=== PATIENT | male | born 1965 | race Caucasian/White ===

== ENCOUNTER 2017-06-16 17:48 | Emergency (ER) | payer BC ==
[~2017-06-16] VITALS: Ht 167.6 cm; Wt 79.0 kg
[~2017-06-16 17:48] MED LIST: BACTRIM,SEPT1 TABLET PO; FLOXIN OTIC SOLN5 ML BOTH EARS; NAPROXEN500 M1 PO; VICODIN,LORT1 TABLET PO; ZITHROMAX Z-PA250 MG PO
[2017-06-16 20:16] VITALS: BP 122/88
== END 2017-06-16 20:17 | disposition home or self-care (01) ==
LOC: EME 17:48
DX: M25.562 Pain in left knee (principal)
CPT/HCPCS: 73564; 99281; 99284